=== PATIENT | female | born 1975 | race Caucasian/White ===

== ENCOUNTER 2023-03-05 06:30 | Day surgery (SDC) | payer BC, OTHER ==
[~2023-03-05 06:30] MED LIST: Dextrose 5%-0.45% NaCl 1,000 ML IV SCH
[2023-03-05] MEDS ORDERED: fentaNYL 100 MCG/2 ML SDV ONE (07:27)
[2023-03-05] MEDS ORDERED: Midazolam 1 MG/ML 2 ML SDV ONE (07:27)
[2023-03-05] MEDS ORDERED: fentaNYL 100 MCG/2 ML SDV IV ONE ×6 (08:07→08:18)
[2023-03-05] MEDS ORDERED: Midazolam 1 MG/ML 2 ML SDV IV ONE ×6 (08:08→08:13)
== END 2023-03-05 09:37 | disposition home or self-care (01) ==
LOC: DL.ENDO 06:30
PROVIDERS: ATTEND Internal Medicine Gastroenterology
DX: Z12.11 Encounter for screening for malignant neoplasm of colon (principal); Z98.890 Other specified postprocedural states; Z88.8 Allergy status to other drugs, medicaments and biological substances; Z88.1 Allergy status to other antibiotic agents
CPT/HCPCS: 81025; J2250; J3010; J7042